=== PATIENT | female | born 1990 | race Caucasian/White ===

== ENCOUNTER 2023-10-23 16:44 | Emergency (ER) | payer SELFPAY ==
[2023-10-23] MEDS: Ondansetron 4 MG Tab.DIS PO ONE (17:02)
[2023-10-23 17:27] LABS: EOSINOPHILS ABSOLUTE AUTO 0.02 10^3/uL (0.00-1.50); EOSINOPHILS PERCENT AUTO 0.4 % (0-6); HEMATOCRIT 38.3 % (37.0-47.0); HEMOGLOBIN 12.5 g/dL (12.0-16.0); IMMATURE GRAN ABSOLUTE AUTO 0.01 10^3/uL (0.00-0.49); IMMATURE GRAN PERCENT AUTO 0.2 % (0.0-4.9); LYMPHOCYTES ABSOLUTE AUTO 0.71 10^3/uL (0.60-5.00); LYMPHOCYTES PERCENT AUTO 13.6 % (24-44); MEAN CORPUSCULAR HEMOGLOBIN 28.5 pg (27.0-32.0); MEAN CORPUSCULAR HGB CONC 32.6 g/dL (32.0-36.0); MEAN CORPUSCULAR VOLUME 87.2 fL (83.0-97.0); MONOCYTES ABSOLUTE AUTO 0.39 10^3/uL (0.00-1.50); MONOCYTES PERCENT AUTO 7.5 % (0-10); NEUTROPHILS ABSOLUTE AUTO 4.08 x10^3/uL (1.80-8.00); NEUTROPHILS PERCENT AUTO 78.3 % (41-71); PLATELET COUNT,PLT 202 10^3/uL (150-400); RED BLOOD CELL COUNT 4.39 x10^6/uL (4.00-5.50); WHITE BLOOD CELL COUNT,WBC 5.2 10^3/uL (4.0-11.0)
[2023-10-23 17:40] LABS: ALANINE AMINOTRANSFERASE,ALT 14 U/L (12-78); ALBUMIN 3.5 g/dL (3.4-5.0); ALKALINE PHOSPHATASE 71 U/L (46-116); ASPARTATE AMNIOTRANSFERASE,AST 15 U/L (15-37); BILIRUBIN TOTAL 0.3 mg/dL (0.0-1.0); BLOOD UREA NITROGEN,BUN 12 mg/dL (7-18); C-REACTIVE PROTEIN 4.89 mg/dL (<=0.50); CALCIUM 8.6 mg/dL (8.4-10.1); CARBON DIOXIDE,CO2 29 mmol/L (21-32); CHLORIDE,CL 103 mEq/L (98-106); CREATININE 0.7 mg/dL (0.6-1.0); GLUCOSE RANDOM 93 mg/dL (75-99); POTASSIUM,K 3.5 mEq/L (3.5-5.0); PROTEIN TOTAL,TP 7.4 g/dL (6.4-8.2); SODIUM,NA 142 mEq/L (136-145)
[2023-10-23 17:41] LABS: ESTIMATED GFR 116 mL/min (>=60)
[2023-10-23] MEDS: Azithromycin 250 MG Tab PO ONE (17:55)
[2023-10-23] MEDS: predniSONE 20 MG Tab PO STA (17:56)
== END 2023-10-23 18:00 | disposition home or self-care (01) ==
LOC: CC.ED 16:44
DX: J40 Bronchitis, not specified as acute or chronic (principal)
CPT/HCPCS: 36415; 80053; 85025; 86140; 87804; 99283; A9270-GY; J7512; U0002